=== PATIENT | female | born 1945 | race Caucasian/White ===

== ENCOUNTER → 2018-10-29 | Day surgery (SDC) | payer OTHER, BC ==
--- NOTE | 2018-10-29 16:49 | RAD REPORT ---
EXAM DESCRIPTION: US - Breast Core BX w/US Guidance - 10/29/2018 10:17 am CLINICAL HISTORY: ICD N63.20. COMPARISON: October 18, 2018 ultrasound. TECHNIQUE: The risks, benefits and alternatives to the procedure were explained to the patient and i nformed consent obtained. The 6 mm spiculated hypoechoic mass within the upper outer left upper-outer quadrant left breast was localized under sonography. Skin and subcutaneous tissues were anesthetized with Lidocaine. Under sonographic guidance one 14-gau Secure[employer] vacuum assisted core biopsy into the mass was obtained. A 2 cm core specimen was obtained. An ultrasound after the biopsy did not demonstrate the mass. This indicates that the mass likely con tains fluid and it ruptured after the biopsy. IMPRESSION: vacuum assisted core biopsy of the 6 mm mass within the upper-outer quadrant of the lef t breast obtained.
== END ==
LOC: DS 08:57
PROVIDERS: ATTEND Obstetrics & Gynecology
DX: N60.82 Other benign mammary dysplasias of left breast (principal); R92.8 Other abnormal and inconclusive findings on diagnostic imaging of breast; N60.32 Fibrosclerosis of left breast
CPT/HCPCS: 19083; 88305

== ENCOUNTER 2019-06-26 06:41 | Day surgery (SDC) | payer OTHER, BC ==
--- NOTE | 2019-06-23 14:04 | EKG ---
Test Date: 2019-06-23 Test Time: 13:55:06 Field Worker: ASHLEY MEASUREMENT RESULTS: Intervals: Rate: 84 MO: 118 QRSD: 80 QT: 358 QTc: 423 [place]: P: 49 MO: 118 QRS: 30 T: 66 INTERPRETIVE STATEMENTS: Normal sinus rhythm Normal ECG No previous ECG available for comparison Electronically Signed On 06-23-19 14:03:53 GEM SETTER by Todd Davey
[2019-06-23 14:31] LABS: Absolute Lymphocytes (CBC) 2.1 K/uL (0.7-4.9); Basophils % 0.6 % (0-1.3); Hematocrit 42.5 % (36.0-45.0); MPV 9.3 fL (7.6-11.3); RBC Red Blood Cell Count 4.73 M/uL (3.86-4.86)
[2019-06-23 14:47] LABS: Potassium 4.3 mmol/L (3.5-5.1)
--- NOTE | 2019-06-23 15:16 | RAD REPORT ---
EXAM DESCRIPTION: RAD - Chest Pa And Lat (2 Views) - 06/23/2019 2:51 pm CLINICAL HISTORY: preop Chest pain. COMPARISON: CHEST PA AND LAT 2 VIEW dated 12/28/2014; ABDOMEN ACUTE SERIES dated 11/04/2007; Follow Up Breast Axilla Comp dated 05/28/2019; 3D DIAG KLARISSA LT UNI W/CAD dated 05/28/2019 FINDINGS: The lungs are clear. The heart is mildly enlarged in size. No displaced fractures. IMPRESSION: No acute or concerning finding suspected.
--- OUTSIDE RECORDS SUMMARY | 2019-06-26 06:45 | XMS REPORT ---
:1945 [facility] [address] [place] [address] [address] [place] [address] Care Team Providers Name Role Phone DIA RENNER Primary Care Provider Unavailable DIA RENNER Unavailable Unavailable Problems This patient has no known problems. Allergies, Adverse Reactions, Alerts This patient has no known allergies or adverse reactions. Medications This patient has no known medications. Results Test Description Test Time Test Comments Text Results Atomic Results Result Comments Glycosylated Hemoglobin 2016-11-23 23:49:00 Test Item Value Reference Range Comments HBA1c (test code=HBA1C) 5.7 % 4.8-5.9 Comprehensive Metabolic [id number] 21:25:00 Test Item Value Reference Range Comments Sodium (test code=NA) 141 mmol/L 135-145 Potassium (test code=K) 4.0 mmol/L 3.5-5.1 Chloride (test code=CL) 100 mmol/L 98-105 Carbon Dioxide (test 30 mmol/L 22-29 code=CO2) Glucose (test code=GLU) 97 mg/dL 70-115 Blood Urea Nitrogen (test 26 mg/dL 8-23 code=BUN) Creatinine (test 1.2 mg/dL 0.5-0.9 code=CREAT) Calcium (test code=CA) 10.8 mg/dL 8.3-10.5 Prot Total (test code=TP) 7.4 g/dL 6.4-8.3 Albumin (test code=ALB) 4.4 g/dL 3.5-5.2 A/G Ratio (test 1.5 Ratio code=AGRATIO) Globulin (test code=GLOB) 3.0 2.9-3.1 Bili Total (test 0.6 mg/dL 0.1-0.9 code=TBIL) Alk Phos (test 104 U/L 35-104 code=APHOS) AST (test code=AST) 23 U/L 1-32 ALT (test code=ALT) 17 U/L 1-33 BUN/Creatinine Ratio 21.7 (test code=BCRATIO) Anion Gap (test 11 mmol/L 7-16 code=AGAP) Estimated GFR (test 47 mL/min/1.73m2 eGFR (estimated Glomerular code=GFR) Filtration Rate) is an estimated value,calculated from the patient's serum creatinine using the MDRD equation.It is NOT the patient's actual GFR. The eGFR provides a more clinicallyuseful measure of kidney disease than serum creatinine alone.This calculation takes sex and race into account, if the informationis provided. If the race is not provided, and the patient isAfrican-Togol[place], multiply by 1.212. If sex is not provided, and thepatient is female, multiply by 0.742. Results for patients <18 years ofage have not been validated by the MDRD study and should be interpretedwith caution.eGFR Result Interpretation:eGFR > or=60 is in the Normal RangeeGFR < 60 may mean kidney diseaseeGFR < 15 may mean kidney failureRanges recommended by the National Kidney Foundation,http://nkdep.nih .gov Lipid [id number] 21:25:00 Test Item Value Reference Range Comments Cholesterol (test 267 mg/dL 0-200 code=CHOL) Triglycerides (test 225 mg/dL 9-200 Unable to calculate, Trig >400 code=TRIG) HDL (test code=HDL) 56 mg/dL 50-60 Chol/HDL (test 4.8 Ratio 0.0-4.4 code=CHOLPHDL) LDL, Calculated (test 166 mg/dL 0-130 (NOTE)RISK OF HEART code=LDLC) DISEASEPublished by [place]ogol[place] Heart AssociationAnalyte Optimal Boderline Increased RiskCHOL <200 200-239 >240TRIG <150 150-199 >200HDL Male: >60 <40HDL Female: >60 <50LDL <100 130-159 >160LDL NEAR OPTIMAL IS 100-129 VLDL (test code=VLDL) 45 mg/dL 5-40 LDL/HDL (test code=LDLPHDL) 3 CBC with [id number] 21:06:00 Test Item Value Reference Range Comments WBC (test code=WBC) 7.2 K/cumm 4.4-10.5 RBC (test code=RBC) 5.29 M/cumm 3.75-5.20 Hemoglobin (test code=HGB) 14.9 gm/dL 12.2-14.8 Hematocrit (test code=HCT) 49.0 % 36.5-44.4 MCV (test code=MCV) 92.5 fL 80-100 MCH (test code=MCH) 28.2 pg 27.0-32.5 MCHC (test code=MCHC) 30.4 g/dL 32.0-37.5 RDW (test code=RDW) 14.3 % 11.5-14.5 Platelet Count (test code=PLTCT) 212 K/cumm 140-440 MPV (test code=MPV) 9.6 fL Diff Method (test code=DIFFM) Auto Neutrophil (test code=NEUT) 63.3 % 36-70 Lymphocyte (test code=LYMPH) 21.6 % 12-44 Monocyte (test code=MONO) 11.4 % 0-11 Eosinophil (test code=EOS) 2.9 % 0-7 Basophil (test code=BASO) 0.7 % 0-2 Neutro Abs (test code=ANEUT) 4.6 K/cumm 1.6-7.4 Lymph Abs (test code=ALYMPH) 1.5 K/cumm 0.5-4.6 [place] Abs (test code=AMONO) 0.8 K/cumm 0.0-1.2 Eos Abs (test code=AEOS) 0.21 K/cumm 0.00-0.74 Baso Abs (test code=ABASO) 0.1 K/cumm 0.00-0.21
[2019-06-26] MEDS ORDERED: CEFAZOLIN/SWI 1gm 1 GM/10 ML SYR ONE (07:49)
[2019-06-26] MEDS ORDERED: Ringers Lactate 1,000 ML IV ONE (07:49)
[2019-06-26] MEDS ORDERED: FENTANYL CITR 100 MCG/2 ML ONE ×2 (08:32→09:54)
[2019-06-26] MEDS ORDERED: propofoL 200 MG/20 ML VIAL IV ONE (08:32)
[2019-06-26] MEDS ORDERED: LIDOCAINE 2% MPF 5 ML VIAL ONE (08:33)
[2019-06-26] MEDS ORDERED: MIDAZOLAM HCL 2 MG/2 ML INJ ONE (08:33)
--- NOTE | 2019-06-26 09:02 | RAD REPORT ---
EXAM DESCRIPTION: US - Brst,Preop NL Wire Init w/Guid - 06/26/2019 8:44 am CLINICAL HISTORY: NEEDLE LOC, small 5-7 mm spiculated mass 2 o'clock left breast COMPARISON: Ultrasound May 28, 2019, ultrasound October 29, 2018, mammogram May 28, 2019 TECHNIQUE: Patient presents for preoperative needle localization of a previously detailed spiculated mass 2 o'clock position left breast approximately 10 cm from the nipple. Preliminary imaging again identified the mass. The procedure was discussed with the patient in detail. Consent was obtained as part of the surgical consent. Left breast skin prepped and draped in the usual sterile fashion. From a lateral approach the skin an d deeper tissues were anesthetized with 1% lidocaine. A [place] 5 centimeter long mammo lock needle was advanced under sonographic guidance. Tip of the needle was passed through the posterior or deep inessa in of the mass. Hookwire was set. No hemorrhage was observed. Patient tolerated procedure well withou t complications and was transferred back to the surgical holding area pending biopsy. IMPRESSION: Ultrasound-guided needle localization of the small 5-7 mm performed as detailed.
[2019-06-26] MEDS ORDERED: ONDANSETRON 4 MG/2 ML VIAL ONE ×2 (09:23→10:52)
[2019-06-26] MEDS: HYDROMORPHONE HCL 1 MG/ML INJ ONE ×2 (10:45→10:55)
--- NOTE | 2019-06-26 10:48 | RAD REPORT ---
EXAM DESCRIPTION: US - Surgical Specimen - 06/26/2019 10:14 am CLINICAL HISTORY: NEEDLE LOC SPEC Breast mass COMPARISON: Brst,Preop NL Wire Init w/Guid dated 06/26/2019 FINDINGS: Real-time sonography of left breast surgical specimen was performed following excision. Gu idewire and small mass is seen within the specimen. This was communicated to Dr. Mckeon on 06/26/2019.
[2019-06-26] MEDS ORDERED: PROMETHAZINE INJ 25 MG/ML AMP ONE (10:52)
[2019-06-26 11:03] VITALS: O2SAT 95
[2019-06-26] MEDS ORDERED: DIPHENHYDRAMINE 50 MG/ML VIAL ONE (12:18)
[2019-06-26] MEDS ORDERED: TRAMADOL 37.5mg/APAP 325mg PER TAB ONE (12:29)
[2019-06-26 14:21] VITALS: BP 141/57; TEMP 97.6
--- NOTE | 2019-06-26 22:59 | OP ---
Date of Procedure: 06/26/2019 Surgeon: Chacorta Mckeon MD Acid Bleacher: ONEIL Matta. Preoperative Diagnosis: Left breast mass. Postoperative Diagnosis: Left breast mass. Procedure: Needle localization, excision of left breast mass. Estimated Blood Loss: Minimal. Specimen: Left breast mass finding as above. Anesthesia: General. Complications: None. Disposition: Patient tolerated procedure in stable condition and taken to Recovery in good general c ondition. Description Of Procedure: Patient was brought to the OR and placed in supine position. General anes thesia was begun. The patient was prepped and draped in usual sterile fashion and then a 4 cm incisi on was made medial to the needle localization and then subcu tissue divided. Tract of needle identif ied, core tissue at the tip of the needle excised, sent to Radiology, confirmation obtained. Wound i rrigated. Bleeding controlled with cautery and 3-0 chromic used to approximate the subcutaneous tiss ue and close the skin. Sterile dressing was applied. Patient was awakened and taken to Recovery in good general condition. Discharge Note: The patient will go to Day Surgery, then home when stable. Disposition: Home. Condition: Stable. Discharge Instructions: Resume home medications and diet. Activity as tolerated. No heavy lifting. Keep dressing clean and dry. Follow up in my office in 1 week. Call for appointment. Ultracet 1 tablet p.o. q.4 p.r.n. pain. /MODL Voice ID: [id number] Report ID: [id number]
== END 2019-06-26 13:15 | disposition home or self-care (01) ==
LOC: OR 06:41
PROVIDERS: ATTEND Surgery
PROC: 0HBU0ZZ Excision of Left Breast, Open Approach (ICD-10-PCS; principal; 2019-06-26 09:15)
DX: C50.912 Malignant neoplasm of unspecified site of left female breast (principal); Z17.0 Estrogen receptor positive status [ER+]
CPT/HCPCS: 19285; 36415; 71046; 76098; 80048; 85025; 88305; 88307; 93005; J0690; J1170; J1200; J2250; J2405; J2550; J2704; J3010; J7120